=== PATIENT | female | born 1950 | race Caucasian/White ===

== ENCOUNTER 2017-05-27 15:00 | Outpatient (RCR) | payer MEDICARE, OTHER ==
[~2017-05-27 15:00] MED LIST: ACETAMINOPHEN-1 EAC1 ORAL; DOXEPIN HCL25 MG ORAL; KLONOPIN0.5 MG ORAL; PAXIL20 MG ORAL; PREDNISONE50 MG PO; RANITIDINE HCL150 MG ORAL; ZITHROMAX250 MG PO
== END 2017-06-06 | disposition home or self-care (01) ==
LOC: PTY 15:00
DX: M17.11 Unilateral primary osteoarthritis, right knee (principal)
CPT/HCPCS: 97110; 97140; 97163; G8978; G8979

== ENCOUNTER → 2017-07-07 | Outpatient (RCR) | payer MEDICARE, OTHER | END | disposition home or self-care (01) | LOC: PTY 06-23 08:30 | DX: M17.11 Unilateral primary osteoarthritis, right knee (principal); M81.0 Age-related osteoporosis without current pathological fracture ==

== ENCOUNTER 2017-08-04 09:28 | Outpatient (RCR) | payer MEDICARE, OTHER | END 2017-08-06 | disposition home or self-care (01) | LOC: PTY 09:28 | DX: M17.11 Unilateral primary osteoarthritis, right knee (principal); M81.0 Age-related osteoporosis without current pathological fracture ==

== ENCOUNTER 2017-08-30 15:21 | Outpatient (RCR) | payer MEDICARE, OTHER | END 2017-09-06 | disposition home or self-care (01) | LOC: PTY 15:21 | DX: M17.11 Unilateral primary osteoarthritis, right knee (principal); M81.0 Age-related osteoporosis without current pathological fracture ==

== ENCOUNTER 2017-09-16 15:49 | Outpatient (RCR) | payer MEDICARE, OTHER | END 2017-10-06 | disposition home or self-care (01) | LOC: PTY 15:49 | DX: M17.11 Unilateral primary osteoarthritis, right knee (principal); M81.0 Age-related osteoporosis without current pathological fracture; F41.9 Anxiety disorder, unspecified ==

== ENCOUNTER → 2018-03-06 | Outpatient (CLI) | payer MEDICARE, OTHER ==
--- NOTE | 2018-03-06 17:40 | Diagnostic Imaging Report ---
Indication: Cough Technique: PA and lateral views of the chest Comparison: 11/28/2013 Findings: There is no focal airspace consolidation, pleural effusion or pneumothorax. Heart size and mediastinal contours are within normal limits and stable compared to the prior exam. Atherosclerotic calcifications noted in the aorta. There is osteopenia and degenerative change of the spine. No acute osseous abnormality appreciated. IMPRESSION: No radiographic evidence of acute cardiopulmonary disease. No focal airspace consolidation.
== END | disposition home or self-care (01) ==
LOC: RAD 14:42
DX: R05 Cough (principal); M85.80 Other specified disorders of bone density and structure, unspecified site
CPT/HCPCS: 71046

== ENCOUNTER 2018-08-11 13:15 | Outpatient (RCR) | payer MEDICARE, OTHER | END 2018-09-06 | disposition home or self-care (01) | LOC: PTY 13:15 | DX: M17.11 Unilateral primary osteoarthritis, right knee (principal); M17.12 Unilateral primary osteoarthritis, left knee; M51.16 Intervertebral disc disorders with radiculopathy, lumbar region; M19.041 Primary osteoarthritis, right hand; M19.042 Primary osteoarthritis, left hand | CPT/HCPCS: 97110; 97116; 97161; G8978; G8979 ==

== ENCOUNTER 2018-09-13 09:30 | Outpatient (RCR) | payer MEDICARE, OTHER | END 2018-10-06 | disposition home or self-care (01) | LOC: PTY 09:30 | DX: M17.11 Unilateral primary osteoarthritis, right knee (principal); M17.12 Unilateral primary osteoarthritis, left knee; M51.16 Intervertebral disc disorders with radiculopathy, lumbar region; M19.041 Primary osteoarthritis, right hand; M19.042 Primary osteoarthritis, left hand | CPT/HCPCS: 97110; 97166; G8987; G8988 ==